=== PATIENT | male | born 1970 | race Caucasian/White ===

== ENCOUNTER 2022-12-14 16:38 | Emergency (ER) | payer OTHER, SELFPAY ==
--- NOTE | ~2022-12-14 | XR_ITS ---
EXAM: XR hand RT min 3V DATE: 12/14/2022 17:16 HISTORY: Laceration to dorsolateral aspect of the right 2nd MCP joint . COMPARISON: None available. FINDINGS: Normal mineralization. No acute fracture or dislocation. Tiny ossific fragment projecting over the dorsal aspect of the proximal carpal row, may represent an old triquetral fracture fragment. No lytic or blastic lesion. Mild scattered degenerative change. No erosion or periosteal change. Ta deborah soft tissue swelling/laceration over the metacarpal heads in the lateral view. IMPRESSION: No acute osseous finding in the right hand. No radiopaque foreign body detected. Reviewed, dictated and finalized at location K. IMPRESSION: No acute osseous finding in the right hand. No radiopaque foreign b livier detected.
[2022-12-14 16:41] VITALS: BP 143/91; PULSE 82; RESP 16; TEMP 36.9; O2SAT 98
[2022-12-14] MEDS: TETANUS,DIPHTHERIA,AC PERTUSSIS ADULT (0.5 ML) BOOSTRIX IM (17:23)
--- NOTE | 2022-12-14 17:41 | ED.GENADULT ---
HPI - General Adult General Chief complaint: Wound/Laceration Stated complaint: hand lac Time Seen by Provider: 12/14/22 16:57 Source: patient Mode of arrival: ambulatory Limitations: no limitations History of Present Illness HPI narrative: This is a 52-year-old male who presents to the ED with chief complaint of a right hand injury just prior to arrival. 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 Reports the injury to the right second knuckle. Denies any further site of pain or injury. Had some trouble complete trolling bleeding at the time but bleeding is now controlled. Unsure of tetanus status. Denies numbness or weakness. Related Data Allergies Allergy/AdvReac Type Severity Reaction Status Date / Time Penicillins Allergy Unknown Verified 12/14/22 16:44 Bekvorb-[id number] Reductase Allergy Itching Verified 12/14/22 16:44 Inhibitor Review of Systems Review of Systems: CONSTITUTIONAL: Denies fever, chills, or sweats. SKIN: See HPI MUSCULOSKELETAL: See HPI NEUROLOGIC: Denies headache, numbness, dizziness, or weakness. PSYCHIATRIC: Denies anxiety or depression. Exam Narrative: GENERAL: Well-appearing, well-nourished, and in no acute distress. MSK: Normal range of motion. No edema. Neurovascular intact distally. SKIN: There is a 1.5 cm superficial laceration to the right dorsal second MCP area. Bleeding controlled. Slightly contaminated. No obvious foreign bodies. NEURO: Alert and oriented x3. No focal deficits. PSYCH: Normal mood and affect. Course Vital Signs Vital signs: Vital Signs Temperature 98.5 F 12/14/22 16:41 Pulse Rate 82 12/14/22 16:41 Respiratory Rate 16 12/14/22 16:41 Blood Pressure 143/91 H 12/14/22 16:41 Pulse Oximetry 98 12/14/22 16:41 Oxygen Delivery Room Air 12/14/22 16:41 Temperature 98.5 F 12/14/22 16:41 Pulse Rate 82 12/14/22 16:41 Respiratory Rate 16 12/14/22 16:41 Blood Pressure 143/91 H 12/14/22 16:41 Pulse Oximetry 98 12/14/22 16:41 Oxygen Delivery Room Air 12/14/22 16:41 Procedures Laceration Laceration 1: Date: 12/14/22 Time: 18:02 Site: hand Side (If applicable): right Size (cm): 1.5 Description: linear Depth: simple, single layer Local Anesthetic: lidocaine 1% Amount of anesthesia used (mL): 2 Pre-repair: wound explored and irrigated extensively ====== Skin Level ====== Skin layer closed with: nylon Size (cm): 5-0 Number of sutures: 2 Technique: simple, interrupted ====== Subcutaneous Layer ====== ====== Muscle Layer ====== ====== Tendon Layer ====== Dressing: gauze, coban Medical Decision Making MDM Narrative Medical decision making narrative: This is a 52-year-old male who presents to the ED for chief complaint of a right hand injury and laceration. Vitals are stable. Bleeding controlled. Wound was well cleaned here in the ED. Tetanus updated. X-rays of the hand are negative. 2 sutures placed. Keflex prescription given. Wound care instructions given. Supportive measures and return precautions discussed. Patient is understanding and agreeable to plan for discharge and follow-up with PCP. Vital Signs Vital Signs: Vital Signs Temperature 98.5 F 12/14/22 16:41 Pulse Rate 82 12/14/22 16:41 Respiratory Rate 16 12/14/22 16:41 Blood Pressure 143/91 H 12/14/22 16:41 Pulse Oximetry 98 12/14/22 16:41 Oxygen Delivery Room Air 12/14/22 16:41 Temperature 98.5 F 12/14/22 16:41 Pulse Rate 82 12/14/22 16:41 Respiratory Rate 16 12/14/22 16:41 Blood Pressure 143/91 H 12/14/22 16:41 Pulse Oximetry 98 12/14/22 16:41 Oxygen Delivery Room Air 12/14/22 16:41 Discharge Plan Discharge Clinical Impression: Laceration, Injury of hand, right Patient Disposition: Home,
== END 2022-12-14 18:41 | disposition home or self-care (01) ==
PROVIDERS: Emergency Provider Physician Assistant; PCP Internal Medicine
DX: S61.411A Laceration without foreign body of right hand, initial encounter (principal); Z23 Encounter for immunization; W29.8XXA Contact with other powered hand tools and household machinery, initial encounter
CPT/HCPCS: 12001; 73130; 90471; 90715; 99283

== ENCOUNTER 2025-01-17 08:06 | Outpatient (CLI) | payer OTHER, SELFPAY ==
--- NOTE | ~2025-01-17 | MR_ITS ---
MRI of the lumbar spine Clinical History: Pain Technique: Axial T2-weighted images, and sagittal T1-weighted, T2-weighted, and T2 fat-sat images wer e acquired. Findings: There is no fracture or subluxation of the lumbar spine. Vertebral bodies maintain normal h eight and alignment. No bone marrow signal reality seen. At L1-L2, there is minimal disc desiccation. No disc bulge or herniation. There is moderate facet hyp ertrophy. No spinal canal stenosis or neural foraminal narrowing. At L2-L3, there is no disc bulge or herniation. There is moderate facet hypertrophy. No spinal canal stenosis or neural foraminal narrowing. L3-L4, there is minimal disc bulge with moderate facet arthropathy. No central canal stenosis. Neural foramina are preserved. At L4-L5, there is disc bulge with moderate to advanced facet arthropathy. There is mild central maritza l stenosis. There is mild bilateral neural foraminal narrowing. At L5-S1, there is mild degenerative disc narrowing. There is minimal disc bulge with moderate facet arthropathy. No central canal stenosis. There is mild right neural foraminal narrowing. Left neural f oramen preserved. Paravertebral soft tissues are unremarkable. Impression: Mild degenerative spondylosis overall, as detailed above. Reviewed, dictated and finalized at location . Impression: Mild degenerative spondylosis overall, as detailed above.
== END 2025-01-17 08:07 | disposition home or self-care (01) ==
DX: S33.5XXA Sprain of ligaments of lumbar spine, initial encounter (principal); X58.XXXA Exposure to other specified factors, initial encounter; M47.896 Other spondylosis, lumbar region
CPT/HCPCS: 72148